=== PATIENT | male | born 1955 | race Caucasian/White ===

== ENCOUNTER → 2017-11-12 | Outpatient (CLI) | payer OTHER ==
[~2017-11-12] MED LIST: ANTIOXIDANT; BROM1POW5 PO; HYDR1SOL10 PO; MULTIVITAMIN PO; Multivitamin PO; Vitamin B Complex PO; [UNRECOGNIZED DRUG - CODE] PO; [UNRECOGNIZED DRUG - CODE] PO; [UNRECOGNIZED DRUG - OTHER] PO
--- NOTE | 2017-11-12 12:42 | DIAGNOSTIC IMAGING REPORT ---
PET/CT SKULL-THIGH CLINICAL HISTORY: Head and neck carcinoma. COMPARISON STUDY: CT scan dated 10/12/2017 FINDINGS: The patient was injected with --- millicuries of F 18 labeled FDG. Findings standard induction phase, PET/CT scanning was performed from the lower neck to the upper thigh region. A separate table acquisitions of the head and neck was acquired. Activity within the thorax is felt to be physiologic. There is no pathologic mel activity. There is no pathologic parenchymal activity. There are no pleural effusions. No dominant point nodules are visualized. The abdomen and pelvis, there is physiologic urinary tract and bowel activity. There is no pathologic hepatic or adrenal gland activity. There is no pathologic mel activity. There is a 15 mm hepatic hypodensity. This is not FDG avid and likely represents a cyst. There is cholelithiasis. There is no pathologic skeletal activity. Within the head and neck, there is no pathologic brain activity. There is intense increased activity fusing to the right tonsil. There is a corresponding 2 cm mass. This lesion has an SUV maximum of 10.6. There is a 3 cm partially solid and cystic level 2 neck mass. This demonstrates ring shaped activity on PET imaging. 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 The SUV maximum is 3.2. No additional pathologic mel activity is identified. There is no contralateral pathologic activity IMPRESSION: 1. 2 cm intensely FDG avid right tonsillar mass. The SUV maximum is 10.6. The findings are suspicious for a primary carcinoma 2. 3 cm partially solid and cystic right level 2 node. Ring-shaped activity suggest a pathologic node with central necrosis 3. No evidence of contralateral pathologic adenopathy. No evidence of distant metastatic disease Electronically signed by: Jack De Jesus M.D. 11/12/2017 12:41 PM Dictated Date/Time: 11/12/2017 12:24 PM
== END | disposition home or self-care (01) ==
LOC: C.PET 08:47
DX: C09.9 Malignant neoplasm of tonsil, unspecified (principal)